=== PATIENT | male | born 1945 | race Caucasian/White ===

== ENCOUNTER 2025-05-09 09:16 | Emergency (ER) | payer MEDICARE, OTHER ==
[2025-05-09] MEDS ORDERED: Sodium Chloride 0.9% 10 ML Syringe FLUSH PRN (09:32)
[2025-05-09 09:45] LABS: BASOPHILS ABSOLUTE AUTO 0.0 x10^3/uL (0.0-0.2); BASOPHILS PERCENT AUTO 0.2 % (0.2-1.2); EOSINOPHILS ABSOLUTE AUTO 0.1 x10^3/uL (0.0-0.5); EOSINOPHILS PERCENT AUTO 2.1 % (0.0-4.0); IMMATURE GRAN ABSOLUTE AUTO 0.01 x10^3/uL (0.00-0.07); IMMATURE GRAN PERCENT AUTO 0.20 % (0.00-0.43); LYMPHOCYTES ABSOLUTE AUTO 0.5 x10^3/uL (1.0-4.8); LYMPHOCYTES PERCENT AUTO 8.4 % (25.0-50.0); MONOCYTES ABSOLUTE AUTO 0.4 x10^3/uL (0.0-0.8); MONOCYTES PERCENT AUTO 6.9 % (2.0-11.0); NEUTROPHILS ABSOLUTE AUTO 5.0 x10^3/uL (1.8-7.7); NEUTROPHILS PERCENT AUTO 82.2 % (50.0-80.0); PLATELET COUNT,PLT 124 x10^3/uL (130-400); RED BLOOD CELL COUNT 3.86 x10^6/uL (4.5-6.0)
[2025-05-09 09:58] LABS: WHITE BLOOD CELL COUNT,WBC 6.1 x10^3/uL (4.0-10.0)
[2025-05-09 10:08] LABS: A/G RATIO 0.97; ALANINE AMINOTRANSFERASE,ALT 57.0 U/L (16-63); ASPARTATE AMNIOTRANSFERASE,AST 43.0 U/L (15-37); BILIRUBIN TOTAL 1.0 mg/dL (0.2-1.0); BLOOD UREA NITROGEN,BUN 14.0 mg/dL (7-18); CARBON DIOXIDE,CO2 25.0 mmol/L (21-32); CHLORIDE,CL 104.0 mmol/L (98-107); CREATINE KINASE,CK 90.0 U/L (39-308); CREATININE 1.2 mg/dL (0.70-1.30); EST CRCL DRUG DOSING (CG) 53.16 mL/min; ESTIMATED GFR 62.0 mL/min (>=60); GLUCOSE RANDOM 112.0 mg/dL (70-99); POTASSIUM,K 3.7 mmol/L (3.5-5.1); PROTEIN TOTAL,TP 6.7 g/dL (6.4-8.2); SODIUM,NA 142.0 mmol/L (136-145)
[2025-05-09] MEDS: Ondansetron 4 MG/2 ML SDV IVPUSH ONE (10:22)
== END 2025-05-09 10:49 | disposition home or self-care (01) ==
LOC: VM.ED 09:16
DX: I16.0 Hypertensive urgency (principal); Z79.899 Other long term (current) drug therapy; Z91.048 Other nonmedicinal substance allergy status
CPT/HCPCS: 70450; 80053; 82550; 84484; 85025; 93005; 93010; 96374; 99284; 99284-25; A9270-GY; J2405